=== PATIENT | female | born 1935 | race Caucasian/White ===

== ENCOUNTER → 2017-05-02 | Outpatient (CLI) | payer MEDICARE, BC ==
[2017-05-02 12:48] LABS: Blood Urea Nitrogen 16 mg/dL (7-17)
--- NOTE | 2017-05-03 12:34 | CT ---
EXAMINATION TYPE: CT ChestAbdPelvis w con DATE OF EXAM: 05/02/2017 COMPARISON: 11/06/2009 HISTORY: Breast cancer CT DLP: 1302 mGycm. Automated Exposure Control for Dose Reduction was Utilized. CONTRAST: CT scan of the thorax, abdomen and pelvis is performed without and with IV Contrast, patient injected with 100 ml mL of Omnipaque 300. FINDINGS: LUNGS: Biapical pleural parenchymal scarring is again identified as well as thickening of the fissure s superiorly. No new pulmonary nodule or mass is seen. No new focal consolidation, pleural effusion o r pneumothorax. The tracheobronchial tree is patent. MEDIASTINUM: There are no greater than 1 cm hilar or mediastinal lymph nodes. The heart is mildly enl arged. Moderate calcific atheromatous changes are seen of the thoracic aorta and coronary arteries. N o pericardial effusion is seen. OTHER: Right mastectomy has been performed with an external right breast prosthesis noted. Right-side d Mediport is also present. There is a small hiatal hernia. LIVER/GB: No focal hepatic lesion is seen. No intrahepatic biliary ductal dilatation. Gallbladder is partially contracted. No radiopaque gallstones. PANCREAS: There is a stable pancreatic lesion within the pancreatic distal body near the tail on seri es 3 image 59 in comparison to the exam of 2010 measuring 1.4 x 0.7 cm, presumably a benign cystic pa ncreatic lesion or side branch IPMN. SPLEEN: No significant abnormality is seen. 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 ADRENALS: No nodularity or thickening. KIDNEYS: There are bilateral extrarenal pelvi again seen. Kidneys enhance symmetrically. BOWEL: There are low-lying loops of small bowel and moderate amount retained colonic stool throughout the large bowel with surgical rectosigmoid anastomotic site and no significant proximal dilatation t o suggest stricture. No evidence of bowel obstruction. GENITAL ORGANS: Uterus is significantly atrophied or surgically absent. LYMPH NODES: No greater than 1cm abdominal or pelvic lymph nodes are appreciated. OSSEOUS STRUCTURES: New right sacral sclerotic focus is seen on image 78 measuring 7 mm. This is nons pecific and could be metastatic or degenerative. Left iliac sclerosis, cyst seen images unchanged fro m the prior exam and likely degenerative. Sclerotic focus within the anterior fourth right rib and an terior left sixth rib are stable from the prior 2010 and therefore likely related to sequela of prior trauma/fracture deformities. Multilevel compression deformities at the T6, T7, T8, T9, T10 and L1 ar e overall similar to the prior 2010. Sclerotic subcentimeter focus within the T9 vertebral body is al so unchanged from the prior. OTHER: Moderate calcific and noncalcific atheromatous plaquing is seen of the abdominal aorta and its branches. IMPRESSION: 1. Subcentimeter indeterminate right sacral lesion favored to represent degenerative change although this was not present on the prior exam of 2009 and sclerotic metastasis is possible in this patient w ith a history of breast cancer. Multilevel compression deformities are similar to the exam of 2010. S clerotic foci of the anterior right fourth rib and left sixth rib are unchanged from 2010 and therefo re likely related to sequela of prior trauma/fracture deformities. Nuclear medicine bone scan is pend ing for confirmation. 2. No new evidence of visceral metastasis within the chest, abdomen, or pelvis. No new adenopathy. 3. Retrospectively stable 1.4 cm pancreatic body cystic lesion dating back to 2009, presumably a griselda gn cystic pancreatic lesion or side branch IPMN given its long-term stability.
== END | disposition home or self-care (01) ==
LOC: RADCTMAIN 12:08
PROVIDERS: ATTEND Internal Medicine Hematology & Oncology
DX: C50.919 Malignant neoplasm of unspecified site of unspecified female breast (principal); K86.2 Cyst of pancreas
CPT/HCPCS: 82565; 84520; 71260; 74177; 36415; Q9967

== ENCOUNTER → 2017-05-03 | Outpatient (CLI) | payer MEDICARE, BC ==
--- NOTE | 2017-05-03 14:15 | NM ---
EXAMINATION TYPE: NM bone scan whole body DATE OF EXAM: 05/03/2017 COMPARISON: 05/02/2017 HISTORY: Breast cancer Delayed whole-body scanning was performed following the injection of 25.9 mCi Tc 99m MDP. Images acq uired 3 hours post injection. FINDINGS: There is abnormal uptake involving the cervical, thoracic and lower lumbar spine. Abnormal uptake involving the feet, shoulders and sternoclavicular joints likely post arthritic. The sclerotic densities noted by CT scan did not demonstrate marked increased uptake. Left-sided rib lesion noted by previous CT scan does not demonstrate increased uptake. Additionally the left-sided r ib lesion appears to be present on the CT scan of 11/06/2009 and therefore likely the basis of remote t rauma. IMPRESSION: 1. Abnormal uptake involving the lower lumbar spine appears likely to be degenerative. 2. Abnormal uptake involving the thoracic spine corresponds to numerous compression deformities by re cent CT scan. 3. Abnormal uptake involving the cervical spine is not included on the recent CT scan or is there a p revious for comparison. This is felt to be most likely degenerative could be correlated with x-ray. 4. Small focal sclerotic lesion seen by recent CT scan including the left rib lesion do not demonstra te increased uptake or absence of uptake therefore likely benign.
== END | disposition home or self-care (01) ==
LOC: RADNMMAIN 09:47
PROVIDERS: ATTEND Internal Medicine Hematology & Oncology
DX: C50.919 Malignant neoplasm of unspecified site of unspecified female breast (principal); R93.7 Abnormal findings on diagnostic imaging of other parts of musculoskeletal system
CPT/HCPCS: 78306; A9503

== ENCOUNTER → 2017-07-02 | Outpatient (CLI) | payer MEDICARE, BC ==
--- NOTE | 2017-07-02 11:14 | CT ---
EXAMINATION TYPE: CT sinus wo con DATE OF EXAM: 07/02/2017 COMPARISON: NONE HISTORY: sinusitis CT DLP: [address] of the paranasal sinuses was performed in the axial and coronal planes. Bone and soft tissue settings are submitted. The paranasal sinuses demonstrate normal aeration and development. Near complete opacification left maxillary sinus. Mild mucosal thickening right maxillary sinus. Mild scattered ethmoidal opacification. Frontal sinuses and sphenoid sinus are well aerated. The osteal meatal units are patent bilaterally. The nasal septum is midline. No bony destructive changes are seen within the field of view. IMPRESSION: Chronic sinusitis as noted.
== END | disposition home or self-care (01) ==
LOC: RADCTMAIN 09:38
PROVIDERS: ATTEND Otolaryngology
DX: J32.9 Chronic sinusitis, unspecified (principal)
CPT/HCPCS: 70486

== ENCOUNTER → 2017-12-29 | Outpatient (CLI) | payer MEDICARE, BC ==
--- NOTE | 2017-12-29 15:19 | XR ---
EXAMINATION TYPE: XR chest 2V DATE OF EXAM: 12/29/2017 COMPARISON: 05/02/2017 TECHNIQUE: PA and lateral views submitted. HISTORY: Port-A-Cath FINDINGS: There is ectasia of the thoracic aorta with atherosclerotic change. Mediport catheter seen. Rib defor mities are noted. Arthropathy of the shoulders. No pneumothorax. Biapical pleural thickening. No over t failure. IMPRESSION: 1. Thoracic aortic ectasia. Mild aneurysmal dilation of the ascending aorta in the differential diagn osis. 2. Numerous compression deformities throughout the thoracic spine of indeterminate age. 3. Deformity or intraosseous lesion of the anterior margin right seventh rib which is been reported b y recent CT scan dated 05/02/2017..
== END ==
LOC: RADXRMAIN 14:40
PROVIDERS: ATTEND Internal Medicine Cardiovascular Disease
DX: I77.810 Thoracic aortic ectasia (principal); R06.02 Shortness of breath; I35.0 Nonrheumatic aortic (valve) stenosis
CPT/HCPCS: 71046; 83880

== ENCOUNTER → 2018-05-05 | Outpatient (CLI) | payer MEDICARE, BC ==
[2018-05-05 10:14] LABS: Blood Urea Nitrogen 19 mg/dL (7-17)
--- NOTE | 2018-05-05 12:09 | CT ---
EXAMINATION TYPE: CT ChestAbdPelvis w con DATE OF EXAM: 05/05/2018 COMPARISON: 05/17/2017 HISTORY: Follow up breast cancer. CT DLP: 518.3 mGycm. Automated Exposure Control for Dose Reduction was Utilized. CONTRAST: CT scan of the thorax, abdomen and pelvis is performed with IV Contrast, patient injected with 100 mL of Isovue 300. FINDINGS: LUNGS: Biapical pleural parenchymal scarring is again noted and similar to the prior. The lungs are g rossly clear, there is no concerning parenchymal mass or nodule identified. There is no pleural eff usion or pneumothorax seen. The tracheobronchial tree is patent. MEDIASTINUM: There are no greater than 1 cm hilar or mediastinal lymph nodes. No pericardial effusi on is seen. OTHER: There is redemonstration of a right breast prosthesis and right-sided Mediport with small hiat al hernia, also seen on the prior. LIVER/GB: Portal vein prominence at the periphery of the right hepatic lobe may represent an arterial portal shunt. No suspicious hepatic lesions are seen. No intrapelvic biliary ductal dilatation. Ther e is a solitary stable hepatic cyst. No cholelithiasis. PANCREAS: Again there is stability of the approximately 1.4 x 0.7 cm pancreatic distal body lesion da ting back to 2010, presumably benign pancreatic cystic lesion. No new pancreatic ductal dilatation is present. SPLEEN: No significant abnormality is seen. ADRENALS: No significant abnormality is seen. KIDNEYS: Again there are bilateral extrarenal pelvi. Kidneys enhance symmetrically. BOWEL: Surgical clip is seen near the distal sigmoid colon at the rectosigmoid anastomotic site. No d ilated large or small bowel.. GENITAL ORGANS: There is pelvic floor relaxation noted. Uterus is surgically absent or significantly atrophic LYMPH NODES: No greater than 1cm abdominal or pelvic lymph nodes are appreciated. OSSEOUS STRUCTURES: There is diffuse osseous demineralization. Multilevel compression deformities of the T6, T7, T8, T9, T10 and L1 vertebral bodies are similar to the prior. T9 sclerotic subcentimeter focus is unchanged from the prior exams. Right sacral sclerotic focus measuring approximately 7 mm an d the left iliac sclerotic foci are also unchanged from the prior. No new suspicious osseous lesions are seen multilevel degenerative changes of the spine are noted. Sclerotic foci within the anterior r ight fourth rib and left sixth rib are unchanged from 2010. OTHER: Moderate to severe calcific atheromatous changes are seen of the abdominal aorta and its branc hes, which is extremely tortuous in course. IMPRESSION: 1. Stability of the multifocal sclerotic foci within the right sacral ala, left iliac bone, ribs, and spine all favored to represent degenerative change, posttraumatic change and bone islands. 2. No new evidence of visceral metastasis within the chest, abdomen, or pelvis. 3. Continued stability of the presumably benign pancreatic cystic lesion.
--- NOTE | 2018-05-05 15:15 | NM ---
EXAMINATION TYPE: NM bone scan whole body DATE OF EXAM: 05/05/2018 COMPARISON: Prior bone scan 05/03/2017, CT chest abdomen pelvis 05/05/2018 HISTORY: Breast carcinoma Delayed whole-body scanning was performed following the injection of 22.1 mCi Tc 99m MDP. Images acq uired 3.75 hours post injection. FINDINGS: Posterior upper right rib fractures on CT correspond to increased uptake on bone scan. Right pedicle and portion of the right lamina, transverse process at T1 shows a sclerotic appearance with correspon ding increased uptake in bone scan. Uptake also noted over the right maxilla which is indeterminate. Additional uptake seen within the cervical, thoracic, lumbar spine, feet, wrists, elbows, shoulders a nd sternoclavicular joints is again noted. IMPRESSION: Interval rib fractures proximally. Correlate for possible maxillary sinusitis. Findings are otherwise essentially stable.
== END | disposition home or self-care (01) ==
LOC: RADNMMAIN 09:22
PROVIDERS: ATTEND Internal Medicine Hematology & Oncology
DX: S22.31XA Fracture of one rib, right side, initial encounter for closed fracture (principal); G95.89 Other specified diseases of spinal cord; K86.2 Cyst of pancreas
CPT/HCPCS: 82565; 84520; 71260; 74177; 36415; 78306; A9503; Q9967

== ENCOUNTER → 2019-05-04 | Outpatient (CLI) | payer MEDICARE, BC ==
[2019-05-04 10:00] LABS: African American GFR (CKD) >90 (>60 ml/min/1.73 sqM); Blood Urea Nitrogen 14 mg/dL (7-17); Non-African American GFR(CKD) 80 (>60 ml/min/1.73 sqM)
--- NOTE | 2019-05-04 14:46 | CT ---
EXAMINATION TYPE: CT ChestAbdPelvis w con DATE OF EXAM: 05/04/2019 INDICATION: Prior history of cancer. Follow up scan COMPARISON: 05/05/2018 CT DLP: 480.6 mGycm CONTRAST: Performed with Oral Contrast and with IV Contrast, patient injected with 80 mL of Isovue 300. TECHNIQUE: Axial images at 5 mm thick sections. Reconstructed images in the coronal plane. Delayed images through the kidneys. FINDINGS: CT CHEST: Portion of the thyroid visualized is normal. There is a right breast prosthesis. No suspicious lung nodules or focal infiltrates are present. Some mild compressive atelectasis is wit hin the dependent portions of the lung bases. No enlarged mediastinal or hilar adenopathy is evident. The heart size is upper limits of normal. The ascending aorta diameter at the level of the main pulmo nary artery is 3.5 cm. The main pulmonary artery diameter at the bifurcation is 3.[address] ABDOMEN: Liver: Normal Spleen: Normal Pancreas: Atrophic Adrenal glands: The adrenal glands are normal as visualized. Gallbladder: Appears partially decompressed. This is better visualized in the coronal plane Kidneys: No masses are evident. No hydronephrosis is present. No cysts are present. Extrarenal pelv es are present. Delayed images were obtained through the kidneys, which remain unremarkable. Aorta: Vascular calcification is within the aorta. Inferior vena cava: Normal. CT PELVIS: Loops of bowel within the abdomen and pelvis are normal. There are loops of bowel which are incom pletely distended or lack oral contrast limiting their evaluation. Appendix: Normal as visualized. Urinary bladder: Normal. Genitourinary structures: Uterus and ovaries are not identified. Osseous structures: No suspicious lytic or sclerotic lesions. Few small sclerotic areas such as withi n the mid thoracic region of the sacral ala and iliac wing are stable from comparison are likely bone islands. Degenerative changes are at the bilateral hips. Scoliosis within the thoracic or lumbar spi ne. There are some compression deformities of the mid thoracic spine with exaggeration of thoracic ky phosis. This was present previously. IMPRESSIONS: 1. No suspicious changes suggest metastatic disease. 2. Degenerative osseous changes which are stable through the thoracic spine. Old compression deformit ies are present.
--- NOTE | 2019-05-04 15:10 | NM ---
EXAMINATION TYPE: NM bone scan whole body DATE OF EXAM: 05/04/2019 COMPARISON: 05/05/2018, CT scan 05/04/2019 HISTORY: Breast cancer Delayed whole-body scanning was performed following the injection of 21.7 mCi Tc 99m MDP. Images acq uired 4 hours post injection. FINDINGS: There is a new intense area of abnormal uptake involving the lower left anterior rib cage at the appr oximate level of the left 10th rib. There is a new focal area of intense abnormal uptake involving the left upper rib cage the proximal l evel of the left fourth rib. There is a stable appearing area of abnormal uptake involving the bilateral rib. Stable appearing uptake involving the right maxilla likely in the basis of inflammatory sinusitis. Abnormal uptake involving the shoulders, feet, knees, wrists, hands and sternoclavicular joints appea rs stable and consistent with post arthritic changes. Abnormal uptake throughout the thoracic and lumbar spine is stable relative to the prior exam IMPRESSION: 1. There are 2 new areas of abnormal uptake relative to the prior exam one within the upper left post erior rib cage and the second within the left anterior lower rib cage findings are felt to BE most ty pical of metastasis. Additional areas of uptake involving the rib cage bilaterally are stable and fel t to be suggestive of metastases. Although, there are evidence of remote fractures the locations of t he lesions and the appearance of the marrow are more suggestive of metastatic disease. 2. Remaining abnormal uptake involving the shoulders, hands, wrists, knees, and feet are stable and m ost typical of post arthritic change. 3. Abnormal uptake involving the sternoclavicular joints stable and most typical of arthritic change. 4. Abnormal uptake throughout the vertebral column. Comparison CT demonstrated compression deformitie s, degenerative disc disease and areas of sclerosis felt to be suspicious for metastasis stable relat disha to the prior exam.
== END | disposition home or self-care (01) ==
LOC: RADNMMAIN 08:54
PROVIDERS: ATTEND Internal Medicine Hematology & Oncology
DX: C50.919 Malignant neoplasm of unspecified site of unspecified female breast (principal)
CPT/HCPCS: 82565; 84520; 71260; 74177; 78306; A9503; Q9967

== ENCOUNTER → 2019-05-11 | Outpatient (CLI) | payer MEDICARE, BC ==
--- NOTE | 2019-05-11 12:08 | XR ---
EXAMINATION TYPE: XR ribs LT DATE OF EXAM: 05/11/2019 COMPARISON: Bone scan 05/04/2019 HISTORY: Pain TECHNIQUE: 4 views submitted FINDINGS: Mediport catheter seen. There is a deformity involving the anterolateral 7 rib. No destruct disha changes. IMPRESSION: Deformity involving the anterolateral left sixth rib corresponds to the abnormality seen by bone and CT scan. Correlate for history of trauma otherwise consider metastases.
== END | disposition home or self-care (01) ==
LOC: RADXRMAIN 11:41
PROVIDERS: ATTEND Internal Medicine Hematology & Oncology
DX: M95.4 Acquired deformity of chest and rib (principal); C50.919 Malignant neoplasm of unspecified site of unspecified female breast; C56.9 Malignant neoplasm of unspecified ovary; Z90.10 Acquired absence of unspecified breast and nipple

== ENCOUNTER → 2019-08-27 | Outpatient (CLI) | payer MEDICARE, BC ==
--- NOTE | 2019-08-27 14:07 | NM ---
EXAMINATION TYPE: NM bone scan whole body DATE OF EXAM: 08/27/2019 COMPARISON: 05/04/2019 HISTORY: History of malignancy Delayed whole-body scanning was performed following the injection of 23.2 mCi Tc 99m MDP. Images acq uired 3 hours post injection. FINDINGS: Abnormal uptake involving the rib cage stable. Abnormal uptake involving the vertebral column stable. Abnormal uptake involving the wrists, knees, feet and shoulders greater on the right stable. There is soft tissue uptake involving the lower extremities bilaterally correlate clinically. Abnormal uptake involving the right maxilla stable. Abnormal uptake involving the cervical spine. IMPRESSION: 1. Stable abnormal uptake unchanged from the prior exam.
== END | disposition home or self-care (01) ==
LOC: RADNMMAIN 09:38
PROVIDERS: ATTEND Internal Medicine Hematology & Oncology
DX: C50.919 Malignant neoplasm of unspecified site of unspecified female breast (principal)
CPT/HCPCS: 78306; A9503

== ENCOUNTER → 2020-02-01 | Outpatient (CLI) | payer MEDICARE, BC ==
[2020-02-01 10:48] LABS: African American GFR (CKD) >90 (>60 ml/min/1.73 sqM); Blood Urea Nitrogen 20 mg/dL (7-17); Non-African American GFR(CKD) 80 (>60 ml/min/1.73 sqM)
--- NOTE | 2020-02-01 16:15 | NM ---
EXAMINATION TYPE: NM bone scan whole body DATE OF EXAM: 02/01/2020 COMPARISON: Prior bone scan 08/27/2019, CT 02/01/2020 HISTORY: Breast cancer, ovarian cancer Delayed whole-body scanning was performed following the injection of 21.9 mCi Tc 99m MDP. Images acq uired 3 hours post injection. FINDINGS: Abnormal uptake is noted at the left sacrum on the left which is developed in the interval, correspon ding insufficiency fracture is suspected as noted on CT. Small focus of abnormal uptake also present at the posterior sacrum on the right as compared to prior exam. Posterior rib uptake shows a similar appearance. There is also likely degenerative uptake in the spine, scoliotic curvature. Focus of luce ncy present at the posterior elements of L5 on the right is corresponding uptake similar to prior exa m, there is associated hypertrophic facet arthropathy at this level Focus of uptake is also present i n the left pubic bone not seen on prior exam shows some associated abnormal density, possible fractur e with periosteal reaction on CT. Uptake within the feet and knees, wrists, elbows and shoulders is l ikely degenerative. Soft tissue uptake is normal. Previously identified uptake in the right maxilla i s no longer seen. Cervical spine uptake is likely degenerative in the facets. IMPRESSION: Findings could be due to insufficiency fracture in the left sacrum, fracture of the left pubic bone, metastatic disease is not excluded.
--- NOTE | 2020-02-01 17:40 | CT ---
EXAMINATION TYPE: CT ChestAbdPelvis w con DATE OF EXAM: 02/01/2020 INDICATION: Breast and Ovarian CA COMPARISON: 05/04/2019 CT DLP: 519.2 mGycm CONTRAST: Performed with Oral Contrast and with IV Contrast, patient injected with 100 mL of Isovue 300. TECHNIQUE: Axial images at 5 mm thick sections. Reconstructed images in the coronal plane. Delayed images through the kidneys. FINDINGS: CT CHEST: Right breast prosthesis is evident. Portion of the thyroid visualized is normal. No suspicious lung nodules or focal infiltrates are present. No enlarged mediastinal or hilar adenopathy is evident. The ascending aorta diameter at the level of the main pulmonary artery is 0.4 cm. The main pulmonary artery diameter at the bifurcation is 3.3 cm. Heart size is mildly prominent. CT ABDOMEN: Liver: Normal Spleen: Normal Pancreas: Normal Adrenal glands: Not well visualized. No enlarged masses are identified. Gallbladder: Normal Kidneys: No masses are evident. Mild prominence of the extrarenal collecting system may be present No cysts are present. Delayed images were obtained through the kidneys, which remain unremarkable. Aorta: Vascular calcification is within the aorta. The aorta is tortuous. Inferior vena cava: Normal. CT PELVIS: No suspicious ascites is evident. No fluid collections are evident. No omental caking is e vident. Loops of bowel within the abdomen and pelvis are normal. Large fecal bolus is at the rectum. There are loops of bowel which are incompletely distended or lack oral contrast limiting their evaluation. Appendix: Appears to be the appendix is Normal as visualized. No suspicious dilated tubular structure or inflammatory changes evident. Urinary bladder: Normal. Genitourinary structures: Uterus and ovaries are not identified. Osseous structures: No suspicious lytic or sclerotic lesions. Appears to be a fracture of the left pu bic ramus on the left. Some callus formation is present suggesting this may be subacute. Facet degene rative changes are within the lumbar spine. There are several compression deformities present within the thoracic spine the L1 vertebral level has moderate compression deformity of T6-T10 have anterior wedge deformity with increased kyphosis. IMPRESSIONS: 1. No suspicious changes of metastatic disease. 2. Multiple compression deformities within the thoracic spine with some compression of the L1 vertebr al level as well. Posterior wall displacement is not evident. 3. Large fecal bolus at the rectum. Correlate for fecal impaction. 4. There appears be a subacute fracture of the left pubic ramus. Correlate with the patient's history
== END | disposition home or self-care (01) ==
LOC: RADNMMAIN 09:25
PROVIDERS: ATTEND Internal Medicine Hematology & Oncology
DX: C50.919 Malignant neoplasm of unspecified site of unspecified female breast (principal); C56.9 Malignant neoplasm of unspecified ovary; R19.5 Other fecal abnormalities
CPT/HCPCS: 82565; 84520; 71260; 74177; 36415; 78306; A9503; Q9967 ×2

== ENCOUNTER → 2020-08-15 | Outpatient (CLI) | payer MEDICARE, BC ==
--- NOTE | 2020-08-15 14:20 | NM ---
EXAMINATION TYPE: NM bone scan whole body DATE OF EXAM: 08/15/2020 COMPARISON: 02/01/2020 HISTORY: Breast cancer Delayed whole-body scanning was performed following the injection of 21.0 mCi Tc 99m MDP. Images acq uired 4 hours post injection. FINDINGS: Intense abnormal uptake involving the left sacrum and pubic rami. There is abnormal uptake involving the right sacrum. Findings are stable. Abnormal uptake involving the rib cage is stable from prior exam. Abnormal uptake involving the shoulders, wrists, hands, knees, and feet are stable and likely post ar thritic. Scoliotic curve to the spine with mild to moderate intensity abnormal uptake similar in appearance wi thin the visualized cervical, thoracic and lumbar spine is stable. Abnormal uptake involving the right maxilla likely related to periodontal disease. IMPRESSION: 1. Stable bone scan demonstrating no significant interval change in the areas of abnormal uptake in m etastatic changes throughout the vertebral column, rib cage and pelvic structure suspected.
--- NOTE | 2020-08-16 13:45 | CT ---
EXAMINATION TYPE: CT ChestAbdPelvis w con DATE OF EXAM: 08/15/2020 INDICATION: Breast cancer COMPARISON: 02/01/2020 CT DLP: 1151 mGycm CONTRAST: Performed with Oral Contrast and with IV Contrast, patient injected with 100 mL of Isovue 300. TECHNIQUE: Axial images at 5 mm thick sections. Reconstructed images in the coronal plane. Delayed images through the kidneys. FINDINGS: CT CHEST: There is been a right mastectomy. Portion of the thyroid visualized is normal. No suspicious lung nodules or focal infiltrates are present. No enlarged mediastinal or hilar adenopathy is evident. The ascending aorta diameter at the level of the main pulmonary artery is 3.5 cm. The main pulmonary artery diameter at the bifurcation is 3.3 cm. Heart size is prominent. CT ABDOMEN: Liver: Normal Spleen: Normal Pancreas: Normal Adrenal glands: Poorly visualized. No masses are identified. Gallbladder: Normal Kidneys: No masses are evident. No hydronephrosis is present. No cysts are present. Delayed images were obtained through the kidneys, which remain unremarkable. Aorta: Vascular calcification is within the aorta. The aorta is tortuous. Inferior vena cava: Normal. CT PELVIS: No abnormal ascites is evident. No omental caking is evident. Loops of bowel within the abdomen and pelvis are normal. There are loops of bowel which are incom pletely distended or lack oral contrast limiting their evaluation. Fecal debris is within the colon. No obstruction is identified. Appendix: Not identified. No dilated tubular structure or inflammatory changes are evident. Urinary bladder: Normal. Genitourinary structures: Uterus and ovaries are not identified. Osseous structures: Appears to be old and healing fractures of the left ischial ramus. Old healing ri b ramus fractures again evident. Compression deformity of L1 superior endplate is present. Compressio n deformities within the T8, T9, T10 levels. T5 region compression deformity may be present. Mild sco liosis is present. Some sclerotic changes through the left pubic ramus initial ramus are evident. Ill -defined sclerotic areas are within the sacrum greater on the left. Metastatic disease is not exclude d these levels. IMPRESSIONS: 1. Cardiomegaly. 2. Tortuous aorta without aneurysmal dilatation or significant fusiform prominence. 3. Stable compression deformities to the thoracic spine as well as L1. 4. Redemonstration of the left pubic ramus fracture and left pubic ramus fracture. 5. Increased sclerosis at the left pubic ramus, ischial ramus, and sacrum greater on the left. Develo ping sclerotic metastasis is not excluded
== END | disposition home or self-care (01) ==
LOC: RADCTMAIN 08:52
PROVIDERS: ATTEND Internal Medicine Hematology & Oncology
DX: C50.919 Malignant neoplasm of unspecified site of unspecified female breast (principal); S32.592A Other specified fracture of left pubis, initial encounter for closed fracture; I51.7 Cardiomegaly
CPT/HCPCS: 82565; 84520; 71260; 74177; 36415; 78306; A9503; Q9967

== ENCOUNTER → 2021-04-10 | Outpatient (CLI) | payer MEDICARE, BC ==
[2021-04-10 09:28] LABS: African American GFR (CKD) >90 (>60 ml/min/1.73 sqM); Blood Urea Nitrogen 23 mg/dL (7-17); Non-African American GFR(CKD) 78 (>60 ml/min/1.73 sqM)
--- NOTE | 2021-04-10 11:36 | CT ---
EXAMINATION TYPE: CT ChestAbdPelvis w con DATE OF EXAM: 04/10/2021 COMPARISON: 08/15/2020 HISTORY: History of breast cancer CT DLP: 462.2 mGycm CONTRAST: CT scan of the chest, abdomen and pelvis is performed with Oral Contrast and with IV Contrast, patien t injected with 100 mL of Isovue 300. CT Chest: LUNGS: The lungs are clear and free of infiltrate or atelectasis. No pulmonary nodule or mass is det ected. No pleural effusion or CT evidence of interstitial lung disease. MEDIASTINUM: Thoracic aorta is of normal caliber. The heart is enlarged. No evidence for mediastin al mass or adenopathy. HILAR STRUCTURES: No evidence for mass. No hilar adenopathy is appreciated. OTHER: No significant abnormality. CONTRAST CT ABDOMEN AND PELVIS FINDINGS: LIVER/GB: No calcified gallstones. No space occupying hepatic lesion. Biliary tree is of normal ca liber. PANCREAS: No inflammation. No distinct mass. SPLEEN: No splenic enlargement. No lesion seen. ADRENALS: No nodule. No thickening. KIDNEYS/BLADDER: No hydronephrosis. No nephrolithiasis. No disctinct renal mass. BOWEL: Normal appendix. Normal bowel caliber. No inflammation. GENITAL ORGANS: No gross abnormality. LYMPH NODES: No greater than 1cm abdominal or pelvic lymph nodes are appreciated. AORTA: No significant abnormality. OSSEOUS STRUCTURES: Chronic lumbar and thoracic compression deformities. Chronic pelvic fractures red emonstrated. Metastatic disease to the sacrum redemonstrated. Sclerosis left os pubis and inferior pu bic ramus redemonstrated. OTHER: No significant additional abnormality is seen. IMPRESSION: 1. Essentially stable osseous metastases. 2. Cardiomegaly. 3. No evidence for metastatic disease to the abdominal viscera.
--- NOTE | 2021-04-10 14:48 | NM ---
EXAMINATION TYPE: NM bone scan whole body DATE OF EXAM: 04/10/2021 COMPARISON: CT scan 04/10/2021, nuclear medicine exam 08/15/2020 HISTORY: Breast cancer Delayed whole-body scanning was performed following the injection of 21.0 mCi Tc 99m MDP. Images acq uired 3.25 hours post injection. FINDINGS: 1. There remains abnormal uptake involving the rib cage bilaterally which is similar to the prior bon e scan. There is intense abnormal uptake involving the sacrum on the left and punctate uptake involving the s acrum on the right similar to the prior exam. There appears to be new uptake involving the pubic rami on the left. Abnormal uptake involving the feet likely post arthritic. Abnormal uptake involving the knees and wrists likely post arthritic. Abnormal uptake involving the thoracic and lower lumbar spine likely degenerative in stable from prio r exam. IMPRESSION: 1. Uptake of the sacrum is similar to the prior exam and suggestive of metastases. 2. Nonspecific uptake involving the thoracic and lumbar spine compatible severe degenerative disc dis ease and numerous compression deformities. 3. Abnormal uptake involving the rib cage is suggestive of previous rib fractures noted by recent CT scan. 4. Abnormal uptake involving pubic rami is felt to be more typical of fracture and remote trauma. Cor relate clinically.
== END | disposition home or self-care (01) ==
LOC: RADNMMAIN 08:48
PROVIDERS: ATTEND Internal Medicine Hematology & Oncology
DX: C79.51 Secondary malignant neoplasm of bone (principal); C50.919 Malignant neoplasm of unspecified site of unspecified female breast; I51.7 Cardiomegaly
CPT/HCPCS: 82565; 84520; 71260; 74177; 36415; 78306; A9503; Q9967

== ENCOUNTER → 2022-03-05 | Outpatient (CLI) | payer MEDICARE, BC ==
[2022-03-05 10:08] LABS: African American GFR (CKD) >90 (>60 ml/min/1.73 sqM); Blood Urea Nitrogen 18 mg/dL (7-17); Non-African American GFR(CKD) 88 (>60 ml/min/1.73 sqM)
--- NOTE | 2022-03-05 13:21 | CT ---
EXAMINATION TYPE: CT ChestAbdPelvis w con DATE OF EXAM: 03/05/2022 COMPARISON: 04/10/2021 HISTORY: breast ca CT DLP: 457.2 mGycm Automated exposure control for dose reduction was used. CONTRAST: CT scan of the chest, abdomen and pelvis is performed with Oral Contrast and with IV Contrast, patien t injected with 70 mL of Isovue 300. FINDINGS: CT chest: There has been interval development 16 mm ill-defined subpleural parenchymal density right upper lobe adjacent to the major fissure. There is been interval development of moderate bilateral pleural effu sions. Great vessels the chest are normal and there is no mediastinal, hilar or axillary adenopathy. There i s persistent cardiomegaly. There is a right breast prosthesis. There are multiple stable moderate compression fractures in the thoracic spine T9-T10. There is a mod erate stable compression fracture of L1. There has been interval development of a severe compression fracture of T11 which was normal in height on the previous study. CT abdomen and pelvis: There is no focal mass or organomegaly involving the liver, spleen or adrenal glands. There is a stable 27 mm cyst in the tail of the pancreas. The kidneys excrete contrast promptly and symmetrically. No solid renal mass or hydronephrosis. There is no retroperitoneal adenopathy or hemorrhage in the caliber the abdominal aorta is normal. The bowel loops are normal in caliber is no evidence of bowel obstruction or inflammation. No free in traperitoneal air or fluid There is no pelvic mass or adenopathy. There is a stool ball within the rectum. There has been no change in the ill-defined sclerosis of the left pubic bone and inferior pubic ramus with the healed fracture. No change in the sclerotic density involving the left sacrum. IMPRESSION: 1. Interval development of a right upper lobe lung mass and moderate bilateral pleural effusions. Fin dings are highly suspicious for metastatic disease given the history of breast cancer. 2. No change in the probable bone metastasis involving the left hemipelvis and sacrum. 3. Interval development of a severe compression fracture of T11, possibly pathologic in nature
--- NOTE | 2022-03-05 13:54 | NM ---
EXAMINATION TYPE: NM bone scan whole body DATE OF EXAM: 03/05/2022 COMPARISON: CT scan 03/05/2022, bone scan 04/10/2021 HISTORY: Breast cancer Delayed whole-body scanning was performed following the injection of 18.7 mCi Tc 99m MDP. Images acq uired 3.5 hours post injection. FINDINGS: There remains abnormal uptake involving the rib cage bilaterally which is progressed relative to to t he prior bone scan. Now increased multiple density areas involving the anterior cage bilaterally. There is intense abnormal uptake involving the sacrum on the left and punctate uptake involving the s acrum greater on the right similar to the prior exam. There appears to be stable uptake involving the pubic rami on the left. Abnormal uptake involving the feet likely post arthritic. Abnormal uptake involving the knees and wri sts likely post arthritic. Abnormal uptake involving the thoracic canal appears intense the level of the mid thoracic spine. Pro gressed from prior exam. Faint abnormal uptake involving the knees likely arthritic. Abnormal uptake involving the right maxilla is likely in the bases. IMPRESSION: 1. There is progression in the number of ribs involved with new areas seen involving multiple levels of the anterior rib cage bilaterally compatible with progressive metastases. Findings concordant CT f indings. 2. There is interval increased density uptake involving the thoracic spine compatible with the CT dem onstrated probable pathologic compression fractures. Mild uptake involving the remaining portion of t he thoracic and lower lumbar spine is stable and more indicative of degenerative changes. 3. Remaining areas of abnormal uptake are stable.
== END | disposition home or self-care (01) ==
LOC: RADNMMAIN 08:57
PROVIDERS: ATTEND Internal Medicine Hematology & Oncology
DX: C50.919 Malignant neoplasm of unspecified site of unspecified female breast (principal); M48.54XA Collapsed vertebra, not elsewhere classified, thoracic region, initial encounter for fracture; J90 Pleural effusion, not elsewhere classified; J98.4 Other disorders of lung
CPT/HCPCS: 82565; 84520; 71260; 74177; 36415; 78306; A9503; Q9967

== ENCOUNTER 2022-03-29 08:46 | Day surgery (SDC) | payer MEDICARE, BC ==
[2022-03-29 09:29] LABS: Mean Platelet Volume 7.7; Platelet Count 197 k/uL (150-450)
[2022-03-29 09:35] LABS: INR 1.1 (<1.2); Prothrombin Time 11.4 sec (9.0-12.0)
--- NOTE | 2022-03-29 09:54 | US ---
Ultrasound-guided therapeutic and diagnostic thoracentesis DATE OF EXAM: 03/29/2022 CLINICAL HISTORY: Bilateral pleural effusion Preliminary imaging demonstrated no sizable fluid collection safe for percutaneous drainage. IMPRESSION: 1. No sizable collection percutaneous drainage.
[2022-03-29 10:02] VITALS: BP 124/69; PULSE 70; RESP 16; TEMP 97.9
== END 2022-03-29 09:50 | disposition home or self-care (01) ==
LOC: RADPROMAIN 08:46
PROVIDERS: ATTEND Internal Medicine Hematology & Oncology
DX: J90 Pleural effusion, not elsewhere classified (principal); Z79.82 Long term (current) use of aspirin
CPT/HCPCS: 85049; 85610; 76604; J1642